=== PATIENT | male | born 1980 | race Hispanic/Latino ===

== ENCOUNTER 2022-02-06 04:54 | Emergency (ER) | payer SELFPAY ==
[2022-02-06 05:56] LABS: Absolute Lymphocytes (CBC) 1.8 K/uL (0.7-4.9); Lymphocytes % 9.9 % (15.3-44.8); MCV 87.8 fL (80-100); MPV 10.1 fL (7.6-11.3); RBC Red Blood Cell Count 4.56 M/uL (4.33-5.43)
[2022-02-06] MEDS ORDERED: KETOROLAC 30 MG/ML INJ ONE (06:11)
[2022-02-06 06:14] LABS: Albumin 3.7 g/dL (3.4-5.0); Bilirubin Total 0.7 mg/dL (0.2-1.0); Potassium 3.7 mmol/L (3.5-5.1); Protein, Total 7.8 g/dL (6.4-8.2)
--- NOTE | 2022-02-06 07:04 | RAD REPORT ---
EXAM DESCRIPTION: CTAbdomen Pelvis W Contrast - 02/06/2022 6:42 am CLINICAL HISTORY: Epigastric pain COMPARISON: 09/20/13 TECHNIQUE: CT of the abdomen and pelvis was performed. All CT scans are performed using dose optimization technique as appropriate and may include automated exposure control or mA/KV adjustment according to patient size. FINDINGS: Lower chest: No acute abnormality. Mild circumferential thickened distal esophagus likely reflecting esophagitis. Liver: No acute abnormality or suspicious lesions. Biliary: No biliary ductal dilatation. Stomach: The gastric antrum appears slightly thickened. Duodenum: No significant focal abnormality. Pancreas: No significant abnormality. Spleen: No significant abnormality. Adrenal: No suspicious lesions. Kidney/ureter: No hydronephrosis. No renal calculi. Retroperitoneum: No retroperitoneal adenopathy. Vascular: No aneurysm. Bowel: No significant focal abnormality. Peritoneum: No ascites or free air. Mild fat containing left inguinal hernia. Small fat containing um bilical hernia. Bladder: Grossly unremarkable. Reproductive: No adnexal masses. Bones: No acute fracture. Other: n/a IMPRESSION: No acute intra-abdominal or pelvic finding. Circumferential thickening of the distal eso phagus suggesting esophagitis. Question thickening of the gastric antrum as well. These findings coul d be better assessed with endoscopy.
--- NOTE | 2022-02-06 07:25 | ER ---
[facility]'s [facility] Name: Gustavo Eastman Age: 42 yrs Sex: Male : 1980 Arrival Date: 02/06/2022 Time: 04:58 Bed 20 Private MD: Diagnosis: Rectal pain Presentation: 02/06 05:21 Chief complaint: Patient states: anal pain starting Monday. the pain is more on the lg3 left side but it is getting worse each day. Coronavirus screen: Client denies travel out of the [place] in the last 14 days. At this time, the client does not indicate any symptoms associated with coronavirus-19. Ebola Screen: No symptoms or risks identified at this time. Initial Sepsis Screen: Does the patient have a suspected source of infection? No. Patient's initial sepsis screen is negative. Risk Assessment: Do you want to hurt yourself or someone else? Patient reports no desire to harm self or others. Onset of symptoms was February 04, 2022. 05:21 Method Of Arrival: Ambulatory lg3 05:21 Acuity: ANA 3 lg3 05:27 Initial Sepsis Screen: Does the patient meet any 2 criteria? No. Patient's initial lg3 sepsis screen is negative. Triage Assessment: 05:23 General: Appears in no apparent distress. uncomfortable, Behavior is calm, cooperative. lg3 Pain: Complains of pain in anus Pain currently is 8 out of 10 on a pain scale. Aggravated by increased activity, repositioning, weight bearing, Noted to be resistant to movement. EENT: No deficits noted. No signs and/or symptoms were reported regarding the EENT system. Neuro: No deficits noted. Level of Consciousness is awake, alert, obeys commands, Oriented to person, place, time, situation. Cardiovascular: No deficits noted. Denies chest pain, shortness of breath, Capillary refill < 3 seconds Clubbing of nail beds is absent JVD is absent Patient's skin is warm and dry. Respiratory: No deficits noted. Airway is patent Trachea midline Respiratory effort is even, unlabored, Respiratory pattern is regular, symmetrical, Breath sounds are clear bilaterally. GI: No deficits noted. Abdomen is round non-distended, Bowel sounds present X 4 quads. Abd is soft and non tender X 4 quads. : No deficits noted. No signs and/or symptoms were reported regarding the genitourinary system. Derm: No deficits noted. Skin is intact, is healthy with good turgor, Skin is dry, Skin temperature is warm Reports burning, itching, pain in anus. Musculoskeletal: No deficits noted. No signs and/or symptoms reported regarding the musculoskeletal system. Circulation, motion, and sensation intact. Range of motion: intact in all extremities. Historical: - Allergies: 05:23 No Known Allergies; lg3 - Home Meds: 05:23 None [Active]; lg3 - PMHx: 05:23 None; lg3 - PSHx: 05:23 left wrist; lg3 - Immunization history:: Adult Immunizations up to date, pfizer X2. - Social history:: Smoking status: Patient denies any tobacco usage or history of. Patient uses alcohol, occasionally. Patient/guardian denies using street drugs, IV drugs. Screenin:27 Abuse screen: Denies threats or abuse. Denies injuries from another. Nutritional lg3 screening: No deficits noted. Tuberculosis screening: No symptoms or risk factors identified. Fall Risk None identified. Assessment: 05:27 General: see triage assessment . lg3 06:08 Reassessment: Patient appears in no apparent distress at this time. Patient and/or ha1 family updated on plan of care and expected duration. Pain level reassessed. Patient is alert, oriented x 3, equal unlabored respirations, skin warm/dry/pink. 07:12 Reassessment: Patient and/or family updated on plan of care and expected duration. Pain mb8 level reassessed. Patient is alert, oriented x 3, equal unlabored respirations, skin warm/dry/pink. Vital Signs: 05:21 BP 129 / 82; Pulse 80; Resp 17 S; Temp 98.6; Pulse Ox 98% on R/A; Pain 9/10; ha1 05:21 Weight 80.74 kg (R); Height 5 ft. 2 in. (157.48 cm) (R); Pain 9/10; lg3 06:25 BP 117 / 70; Pulse 69; Resp 18 S; Pulse Ox 99% on R/A; ha1 05:21 Body Mass Index 32.56 (80.74 kg, 157.48 cm) lg3 ED Course: 04:58 Patient arrived in ED. ja2 05:21 Abbey Mccormick, RN is Primary Nurse. ha1 05:23 Triage completed. lg3 05:23 Maco Diop MD is Attending Physician. kdr 05:23 Arm band placed on left wrist. lg3 05:27 Patient has correct armband on for positive identification. Bed in low position. Call lg3 light in reach. Side rails up X 1. Client placed on continuous cardiac and pulse oximetry monitoring. NIBP monitoring applied. Door closed. Noise minimized. Warm blanket given. 05:46 Initial lab(s) drawn, by nj, sent to lab. Inserted saline lock: 20 gauge in right 5 antecubital area, using aseptic technique. Blood collected. 05:47 CBC with Diff Sent. 5 05:47 CMP Sent. 5 05:47 Lipase Sent. 5 06:44 CT Abd/Pelvis - IV Contrast Only In Process Unspecified. EDMS 07:13 Attending Physician role handed off by Maco Diop MD rn 07:13 Rich Klein MD is Attending Physician. rn 07:24 Howard Zamora MD is Referral Physician. rn 07:55 No provider procedures requiring assistance completed. mb8 08:19 IV discontinued, intact, bleeding controlled, No redness/swelling at site. Pressure mb8 dressing applied. Administered Medications: 06:07 Drug: Ketorolac 15 mg Route: IVP; Site: right antecubital; ha1 07:55 Follow up: Response: No adverse reaction; Marked relief of symptoms; Pain is decreased mb8 07:30 Drug: Clindamycin 600 mg Route: IVPB; Infused Over: 30 mins; Site: right antecubital; mb8 08:18 Follow up: Response: No adverse reaction; IV Status: Completed infusion mb8 Medication: 07:55 VIS not applicable for this client. mb8 Outcome: 07:25 Discharge ordered by . rn 08:17 Discharged to home ambulatory. mb8 08:17 Condition: stable 08:17 Discharge instructions given to patient, Instructed on discharge instructions, follow up and referral plans. Demonstrated understanding of instructions, follow-up care, medications, Prescriptions given X 2. 08:19 Patient left the ED. mb8 Signatures: Dispatcher [employer] EDMT Maco Diop MD MD [facility] Rich Klein MD MD rn Martinez, Maria [facility] Cathy Wei RN RN 3 Kaylee Leiva Heidy RN RN ha1 Curtis Delgado RN RN mb8 Corrections: (The following items were deleted from the chart) 05:29 05:21 Acuity: ANA 4 lg3 lg3
--- NOTE | 2022-02-06 07:25 | EDPHYS ---
Physician Documentation [facility] Name: Gustavo Eastman Age: 42 yrs Sex: Male : 1980 Arrival Date: 02/06/2022 Time: 04:58 Bed 20 Private MD: ED Physician Rich Klein HPI: 02/06 05:50 This 42 yrs old Male presents to ER via Ambulatory with complaints of Low Back kdr Pain. 05:50 The patient presents with pain that is acute, with no known mechanism of injury. CC: kdr Anal pain. HPI: Patient complains of pain in the anus since Monday. Patient states he has a history of hemorrhoids but does not feel that is a problem at this time. Denies rectal bleeding or any discharge. He states that the pain is worse on the left side and overall seems to be getting worse since Monday. ROS: Constitutional: No fever, chills or weight loss. Eyes: No visual changes or complaints. Neck: No pain or injury. CV: No chest pain or palpitations. Respiratory: No shortness of breath, cough or congestion. Abdominal: No nausea, vomiting, diarrhea or pain. He is complaining of pain to the rectal area. He denies bloody stools or rectal discharge. no pain or bleeding. No dark urine. Neurological: No gross neurological deficits noted globally or focally. Psychiatric: Appropriate for age. Exam: Well-developed well-nourished male in no acute distress. Head/face: No injury, pain or deformity. Eyes PERRLA. ENT: No pain, injury or bleeding. Neck: No pain, injury or deformity, full range of motion. Chest axilla: No pain, injury or deformity. CV: No rubs, gallops, murmurs, regular rate and rhythm. Respiratory clear to auscultation bilaterally, regular rate. Abdomen/GI: Soft, nontender, bowel sounds present in all quads and normal. Rectal exam was grossly normal. There is no obvious abscess present. Back: No injury or deformity, full range of motion. . Historical: - Allergies: 05:23 No Known Allergies; lg3 - Home Meds: 05:23 None [Active]; lg3 - PMHx: 05:23 None; lg3 - PSHx: 05:23 left wrist; lg3 - Immunization history:: Adult Immunizations up to date, pfizer X2. - Social history:: Smoking status: Patient denies any tobacco usage or history of. Patient uses alcohol, occasionally. Patient/guardian denies using street drugs, IV drugs. ROS: 06:51 Constitutional: Negative for fever, chills, and weight loss, Eyes: Negative for injury, kdr pain, redness, and discharge, ENT: Negative for injury, pain, and discharge, Neck: Negative for injury, pain, and swelling, Cardiovascular: Negative for chest pain, palpitations, and edema, Respiratory: Negative for shortness of breath, cough, wheezing, and pleuritic chest pain, Back: Negative for injury and pain, : Negative for injury, bleeding, discharge, and swelling, MS/Extremity: Negative for injury and deformity, Skin: Negative for injury, rash, and discoloration, Neuro: Negative for headache, weakness, numbness, tingling, and seizure activity. Psych: Negative for depression, anxiety, suicide ideation, homicidal ideation, and hallucinations, Allergy/Immunology: Negative for hives, rash, and allergies, Endocrine: Negative for neck swelling, polydipsia, polyuria, polyphagia, and marked weight changes, Hematologic/Lymphatic: Negative for swollen nodes, abnormal bleeding, and unusual bruising. 06:51 Abdomen/GI: Positive for rectal pain, Negative for abdominal pain, nausea and vomiting, nausea, vomiting, and diarrhea, nausea, diarrhea, constipation, abdominal cramps, abdominal distension, anorexia. Exam: 06:51 Constitutional: This is a well developed, well nourished patient who is awake, alert, kdr and in no acute distress. Head/Face: Normocephalic, atraumatic. Chest/axilla: Normal chest wall appearance and motion. Nontender with no deformity. No lesions are appreciated. Cardiovascular: Regular rate and rhythm with a normal S1 and S2. No gallops, murmurs, or rubs. Normal PMI, no JVD. No pulse deficits. Respiratory: Lungs have equal breath sounds bilaterally, clear to auscultation and percussion. No rales, rhonchi or wheezes noted. No increased work of breathing, no retractions or nasal flaring. Back: No spinal tenderness. No costovertebral tenderness. Full range of motion. Skin: Warm, dry with normal turgor. Normal color with no rashes, no lesions, and no evidence of cellulitis. MS/ Extremity: Pulses equal, no cyanosis. Neurovascular intact. Full, normal range of motion. Neuro: Awake and alert, GCS 15, oriented to person, place, time, and situation. Cranial nerves II-XII grossly intact. Motor strength 5/5 in all extremities. Sensory grossly intact. Cerebellar exam normal. Normal gait. Psych: Awake, alert, with orientation to person, place and time. Behavior, mood, and affect are within normal limits. 06:51 Abdomen/GI: Inspection: abdomen appears normal, Bowel sounds: normal, active, all quadrants, Palpation: soft, nontender, Rectal exam: hemorrhoid(s), are not appreciated, mass, is not appreciated, swelling, is not appreciated, tenderness, that is mild, the exam is chaperoned by the nurse. Vital Signs: 05:21 BP 129 / 82; Pulse 80; Resp 17 S; Temp 98.6; Pulse Ox 98% on R/A; Pain 9/10; ha1 05:21 Weight 80.74 kg (R); Height 5 ft. 2 in. (157.48 cm) (R); Pain 9/10; lg3 06:25 BP 117 / 70; Pulse 69; Resp 18 S; Pulse Ox 99% on R/A; ha1 05:21 Body Mass Index 32.56 (80.74 kg, 157.48 cm) lg3 MDM: 07:13 Patient medically screened. rn 07:20 Differential diagnosis: perirectal phlegmon, proctitis, colitis, diverticulitis. Data rn reviewed: vital signs, nurses notes, lab test result(s), radiologic studies, and as a result, I will discharge patient. Counseling: I had a detailed discussion with the patient and/or guardian regarding: the historical points, exam findings, and any diagnostic results supporting the discharge/admit diagnosis, lab results, radiology results, the need for outpatient follow up, to return to the emergency department if symptoms worsen or persist or if there are any questions or concerns that arise at home. Special discussion: I discussed with the patient/guardian in detail that at this point there is no indication for admission to the hospital. It is understood, however, that if the symptoms persist or worsen the patient needs to return immediately for re-evaluation. ED course: Signed out to me by Dr. Diop, states no evidence of perirectal abscess or thrombosed hemorrhoid, plan was to dc home if ct normal. CT without acute findings, no evidence of proctitis or perirectal abscess. + elevated WBC, could be early infection. Will give abx, and return precautions, patient states feels much better already and understands when to return if worsens.. 02/06 05:31 Order name: CBC with Diff; Complete Time: 07:12 kdr 02/06 05:31 Order name: CMP; Complete Time: 07:12 kdr 02/06 05:31 Order name: CT Abd/Pelvis - IV Contrast Only; Complete Time: 07:12 kdr 02/06 05:31 Order name: Lipase; Complete Time: 07:12 kdr 02/06 05:31 Order name: IV Saline Lock; Complete Time: 05:46 kdr 02/06 05:31 Order name: Labs collected and sent; Complete Time: 05:46 kdr Administered Medications: 06:07 Drug: Ketorolac 15 mg Route: IVP; Site: right antecubital; ha1 07:55 Follow up: Response: No adverse reaction; Marked relief of symptoms; Pain is decreased mb8 07:30 Drug: Clindamycin 600 mg Route: IVPB; Infused Over: 30 mins; Site: right antecubital; mb8 08:18 Follow up: Response: No adverse reaction; IV Status: Completed infusion mb8 Disposition Summary: 02/06/22 07:25 Discharge Ordered Location: Home rn Problem: new rn Symptoms: have improved rn Condition: Stable rn Diagnosis - Rectal pain rn Followup: rn - With: Howard Zamora MD - When: 2 - 3 days - Reason: Recheck today's complaints, Re-evaluation by your physician Discharge Instructions: - Discharge Summary Sheet rn - Pain Without a Known Cause rn Forms: - Medication Reconciliation Form rn - Thank You Letter rn - Antibiotic round corner cutter operator - Prescription Opioid Use rn - Work release form eb Prescriptions: - Clindamycin HCl 300 mg Oral Capsule - take 1 capsule by ORAL route every 6 hours for 10 days; 40 capsule; Refills: 0, rn Product Selection Permitted - Tramadol 50 mg Oral Tablet - take 1 tablet by ORAL route every 8 hours as needed; 12 tablet; Refills: 0, rn Product Selection Permitted Signatures: Dispatcher [employer] EDMaco Holder, MD MD kdr Klein, Rich, MD MD rn Eriberto, Cathy, RN RN lg3 Abbey Mccormick, RN RN ha1 Curtis Delgado RN RN mb8
[2022-02-06] MEDS ORDERED: CLINDAMYCIN 600MG/D5W 600 MG/50 ML BAG IV ONE (07:41)
[2022-02-06 08:41] VITALS: TEMP 98.6
[2022-02-06 08:57] VITALS: BP 117/70; O2SAT 99
== END 2022-02-06 08:19 | disposition home or self-care (01) ==
LOC: ER 04:54
DX: K62.89 Other specified diseases of anus and rectum (principal); M54.50 Low back pain, unspecified
CPT/HCPCS: 36415; 74177; 80053; 83690; 85025; 96365; 96375; 99284; Q9967

== ENCOUNTER 2022-08-07 15:37 | Emergency (ER) | payer SELFPAY ==
[2022-08-07 16:02] LABS: Urine Blood Negative (Negative); Urine Glucose Negative (Negative); Urine Protein Negative (Negative)
[2022-08-07 16:06] LABS: Absolute Lymphocytes (CBC) 2.1 K/uL (0.7-4.9); Hematocrit 42.6 % (39.6-49.0); Lymphocytes % 18.9 % (15.3-44.8); MCV 89.8 fL (80-100); MPV 10.2 fL (7.6-11.3); RBC Red Blood Cell Count 4.75 M/uL (4.33-5.43)
[2022-08-07] MEDS ORDERED: NA CHLORIDE 0.9% 1,000 ML ONE (16:08)
[2022-08-07] MEDS ORDERED: KETOROLAC 30 MG/ML INJ ONE (16:08)
[2022-08-07 16:31] LABS: Albumin 3.6 g/dL (3.4-5.0); Bilirubin Total 0.4 mg/dL (0.2-1.0)
[2022-08-07 16:40] LABS: Urine Bacteria None Seen /HPF (<20); Urine Mucus Slight /HPF (None Seen); Urine RBC <5 /HPF (None Seen)
[2022-08-07 16:42] LABS: Potassium 4.9 mmol/L (3.5-5.1)
--- NOTE | 2022-08-07 16:49 | RAD REPORT ---
EXAM DESCRIPTION: CT - Stone Protocol - 08/07/2022 4:39 pm CLINICAL HISTORY: Abdominal pain/ lower back pain for 3 days. COMPARISON: None. TECHNIQUE: Axial thin cut CT imaging of the abdomen and pelvis was performed without IV contrast. Mu ltiplanar reformats generated and reviewed. All CT scans are performed using dose optimization technique as appropriate and may include automated exposure control or mA/KV adjustment according to patient size. FINDINGS: No suspicious findings in the lung bases. The liver, spleen and pancreas show no suspicious findings. Gallbladder and biliary tree are also wit hout suspicious finding. No hydronephrosis or suspicious renal mass. No significant adrenal finding. Isodense masses and pyel onephritis cannot be excluded in the absence of IV contrast. No dilated bowel loops or bowel wall thickening. No free air, free fluid or inflammatory stranding. N o suspicious mass or adenopathy. The urinary bladder is suboptimally distended, limiting evaluation, without significant finding. Moderate left inguinal fat containing hernia. No suspicious bony findings. IMPRESSION: No hydroureteronephrosis or radiopaque calculi. No other acute abnormalities in abdomen and pelvis. Left inguinal fat containing hernia. Full assessment is limited is the absence of IV contrast.
--- NOTE | 2022-08-07 17:19 | ER ---
[facility] Gust[facility] Age: 42 yrs Sex: Male : 1980 Arrival Date: 08/07/2022 Time: 15:40 Bed 17 [facility] MD: Diagnosis: Low back pain Presentation: 08/07 15:42 Chief complaint: Lower back pain that radiates to lower abdomen x 3 days. Denies hb injury/N/V/urinary symptoms. Coronavirus screen: At this time, the client does not indicate any symptoms associated with coronavirus-19. Ebola Screen: No symptoms or risks identified at this time. Initial Sepsis Screen: Does the patient meet any 2 criteria? No. Patient's initial sepsis screen is negative. Does the patient have a suspected source of infection? No. Patient's initial sepsis screen is negative. Risk Assessment: Do you want to hurt yourself or someone else? Patient reports no desire to harm self or others. Onset of symptoms was August 05, 2022. 15:42 Method Of Arrival: Ambulatory hb 15:42 Acuity: ANA 3 hb Historical: - Allergies: 15:44 No Known Allergies; hb - PSHx: 15:44 Left wrist; hb - Immunization history:: Adult Immunizations up to date. - Social history:: Smoking status: Patient denies any tobacco usage or history of. Screenin:45 [facility] ED Fall Risk Assessment (Adult) History of falling in the last 3 months, ko1 including since admission No falls in past 3 months (0 pts) Confusion or Disorientation No (0 pts) Intoxicated or Sedated No (0 pts) Impaired Gait No (0 pts) Mobility Assist Device Used No (0 pt) Altered Elimination No (0 pt) Score/Fall Risk Level 0 - 2 = Low Risk Oriented to surroundings, Maintained a safe environment, Educated pt \T\ family on fall prevention, incl call for assistance when getting out of bed, Assessed \T\ reinforced patient's understanding of fall precautions, Provided non-skid footwear, Hourly rounding (assess needs \T\ fall precautionary measures) done, Used ambulatory aids as needed (educated on \T\ assisted with), Used gait belt as appropriate. Abuse screen: Denies threats or abuse. Denies injuries from another. Nutritional screening: No deficits noted. Tuberculosis screening: No symptoms or risk factors identified. Assessment: 15:45 General: Appears in no apparent distress. comfortable, Behavior is calm, cooperative, ko1 appropriate for age. Pain: Complains of pain in abdomen and left lower quadrant and right lower quadrant and low back area. Neuro: No deficits noted. Cardiovascular: No deficits noted. Respiratory: No deficits noted. GI: Bowel sounds present X 4 quads. Abd is soft and non tender X 4 quads. : No deficits noted. EENT: No deficits noted. Derm: No deficits noted. Musculoskeletal: No deficits noted. Vital Signs: 15:42 BP 120 / 77; Pulse 75; Resp 16; Temp 97.6(TE); Pulse Ox 100% on R/A; Weight 79.38 kg; hb Height 5 ft. 4 in. (162.56 cm); Pain 6/10; 15:45 BP 118 / 76; Pulse 72; Resp 16; Pulse Ox 99% ; ko1 16:30 BP 124 / 75; Pulse 74; Resp 18; Pulse Ox 98% ; ko1 17:00 BP 121 / 72; Pulse 70; Resp 16; Pulse Ox 99% ; ko1 15:42 Body Mass Index 30.04 (79.38 kg, 162.56 cm) hb ED Course: 15:40 Patient arrived in ED. rg4 15:41 Elsa Moran FNP-C [facility] kb 15:41 Rich Klein MD is Attending Physician. kb 15:44 Triage completed. hb 15:45 Arm band placed on left wrist. hb 15:45 Patient has correct armband on for positive identification. Bed in low position. Call ko1 light in reach. Side rails up X 1. Pulse ox on. NIBP on. 15:45 No provider procedures requiring assistance completed. ko1 15:46 Sheridan Ortiz, SEPIDEH is Primary Nurse. ko1 15:50 Inserted saline lock: 20 gauge in right antecubital area, using aseptic technique. ko1 Blood collected. 15:56 CBC with Diff Sent. ko1 15:56 CMP Sent. ko1 15:56 Lipase Sent. ko1 15:56 Urine Microscopic Only Sent. ko1 16:44 CT Stone Protocol In Process Unspecified. EDMS 17:36 IV discontinued, intact, bleeding controlled, No redness/swelling at site. Pressure ko1 dressing applied. Administered Medications: 16:07 Drug: NS 0.9% 1000 ml Route: IV; Rate: 1 bolus; Site: right antecubital; ko1 17:35 Follow up: Response: No adverse reaction; IV Status: Completed infusion; IV Intake: ko1 1000ml 16:07 Drug: TORadol - (ketorolac) 15 mg Route: IVP; Site: right antecubital; ko1 17:35 Follow up: Response: No adverse reaction; Pain is decreased ko1 Medication: 17:36 VIS not applicable for this client. ko1 Intake: 17:35 IV: 1000ml; Total: 1000ml. ko1 Outcome: 17:18 Discharge ordered by . dyan 17:36 Discharged to home ambulatory. ko1 17:36 Condition: improved 17:36 Discharge instructions given to patient, Instructed on discharge instructions, follow up and referral plans. medication usage, Demonstrated understanding of instructions, follow-up care, medications, Prescriptions given X 1. 17:40 Patient left the ED. ko1 Signatures: Dispatcher [employer] EDMS Elsa Moran, RN SURGICAL-C RN SURGICAL-CkTami Mueller, RN RN Vannesa Rodriguez rg4 Sheridan Ortiz, SEPIDEH RN ko1 Corrections: (The following items were deleted from the chart) 15:45 15:42 Pulse 75bpm; Resp 16bpm; Pulse Ox 100% RA; Temp 97.6F Temporal; 79.38 kg; Height hb 5 ft. 4 in.; BMI: 30.0; Pain 6/10; hb
--- NOTE | 2022-08-07 17:19 | EDPHYS ---
Physician Documentation [facility] Name: Gustavo Eastman Age: 42 yrs Sex: Male : 1980 Arrival Date: 08/07/2022 Time: 15:40 Bed 17 Private MD: ED Physician Rich Klein HPI: 08/07 16:19 This 42 yrs old Male presents to ER via Ambulatory with complaints of kb Abdominal Pain, Back Pain. 16:19 The patient presents with pain that is acute. The symptoms are located in the low back. kb The pain radiates to the right lower quadrant and left lower quadrant. The problem was sustained from unknown cause. Onset: The symptoms/episode began/occurred 3 day(s) ago. Modifying factors: The patient symptoms are alleviated by nothing, the patient symptoms are aggravated by nothing. Associated signs and symptoms: Pertinent positives: abdominal pain, Pertinent negatives: constipation, fever, nausea, vomiting. Severity of symptoms: At their worst the symptoms were moderate, in the emergency department the symptoms are unchanged. The patient has not experienced similar symptoms in the past. The patient has not recently seen a physician. Historical: - Allergies: 15:44 No Known Allergies; hb - PSHx: 15:44 Left wrist; hb - Immunization history:: Adult Immunizations up to date. - Social history:: Smoking status: Patient denies any tobacco usage or history of. ROS: 16:19 Constitutional: Negative for fever, chills, and weight loss. kb 16:19 Abdomen/GI: Positive for abdominal pain, Negative for nausea, vomiting, and diarrhea. 16:19 Back: Positive for pain at rest, pain with movement, of the low back area. 16:19 All other systems are negative. Exam: 16:19 Constitutional: This is a well developed, well nourished patient who is awake, alert, kb and in no acute distress. Head/Face: Normocephalic, atraumatic. ENT: Moist Mucous membranes Cardiovascular: Regular rate and rhythm with a normal S1 and S2. No gallops, murmurs, or rubs. No pulse deficits. Respiratory: Respirations even and unlabored. No increased work of breathing. Talking in full sentences Abdomen/GI: Soft, non-tender. No distention Skin: Warm, dry with normal turgor. Normal color. MS/ Extremity: Pulses equal, no cyanosis. Neurovascular intact. Full, normal range of motion. Neuro: Awake and alert, GCS 15, oriented to person, place, time, and situation. Moves all extremities. Normal gait. 16:19 Back: CVA tenderness, that is mild, is noted bilaterally. Vital Signs: 15:42 BP 120 / 77; Pulse 75; Resp 16; Temp 97.6(TE); Pulse Ox 100% on R/A; Weight 79.38 kg; hb Height 5 ft. 4 in. (162.56 cm); Pain 6/10; 15:45 BP 118 / 76; Pulse 72; Resp 16; Pulse Ox 99% ; ko1 16:30 BP 124 / 75; Pulse 74; Resp 18; Pulse Ox 98% ; ko1 17:00 BP 121 / 72; Pulse 70; Resp 16; Pulse Ox 99% ; ko1 15:42 Body Mass Index 30.04 (79.38 kg, 162.56 cm) hb MDM: 15:41 Patient medically screened. kb 15:57 Data reviewed: vital signs, nurses notes. kb 16:18 Differential diagnosis: appendicitis, diverticulitis, Ureterolithiasis, urinary tract kb infection. ED course: Patient is a 42-year-old male who presents for bilateral flank/low back pain that radiates to abdomen that started 3 days ago and has progressively gotten worse. Denies nausea, vomiting, diarrhea, fever, urinary symptoms. On exam patient has bilateral CVA tenderness that is mild, no abdominal tenderness. Will obtain CT stone, serum labs and urinalysis.. 17:17 Counseling: I had a detailed discussion with the patient and/or guardian regarding: the kb historical points, exam findings, and any diagnostic results supporting the discharge/admit diagnosis, lab results, radiology results, the need for outpatient follow up, a family practitioner, to return to the emergency department if symptoms worsen or persist or if there are any questions or concerns that arise at home. 17:18 ED course: Patient nontoxic in appearance, tolerating p.o. intake, feeling better after kb treatment. Discussed all diagnostic results with patient and educated on need for follow-up with PCP for continued symptoms. Patient in agreement with outpatient follow-up.. 08/07 15:44 Order name: CBC with Diff; Complete Time: 16:18 kb 08/07 15:44 Order name: CMP; Complete Time: 16:46 kb 08/07 15:44 Order name: Lipase; Complete Time: 16:46 kb 08/07 15:44 Order name: Urine Microscopic Only; Complete Time: 16:46 kb 08/07 16:02 Order name: Urine Dipstick-Ancillary; Complete Time: 16:09 EDNH 08/07 16:18 Order name: CT Stone Protocol; Complete Time: 16:50 kb 08/07 15:44 Order name: IV Saline Lock; Complete Time: 15:56 kb 08/07 15:44 Order name: Labs collected and sent; Complete Time: 15:56 kb 08/07 15:44 Order name: Urine Dipstick-Ancillary (obtain specimen); Complete Time: 15:56 kb Administered Medications: 16:07 Drug: NS 0.9% 1000 ml Route: IV; Rate: 1 bolus; Site: right antecubital; ko1 17:35 Follow up: Response: No adverse reaction; IV Status: Completed infusion; IV Intake: ko1 1000ml 16:07 Drug: TORadol - (ketorolac) 15 mg Route: IVP; Site: right antecubital; ko1 17:35 Follow up: Response: No adverse reaction; Pain is decreased ko1 Disposition Summary: 08/07/22 17:18 Discharge Ordered Location: Home kb Condition: Stable kb Diagnosis - Low back pain kb Followup: kb - With: Emergency Department - When: As needed - Reason: Worsening of condition Followup: kb - With: Private Physician - When: 2 - 3 days - Reason: Recheck today's complaints, Continuance of care, Re-evaluation by your physician Discharge Instructions: - Discharge Summary Sheet kb - Musculoskeletal Pain kb Forms: - Medication Reconciliation Form kb - Thank You Letter kb - Antibiotic Education kb - Prescription Opioid Use kb Prescriptions: - Diclofenac Sodium 75 mg Oral tablet,delayed release (DR/EC) - take 1 tablet by ORAL route 2 times per day As needed; 30 tablet; Refills: 0, kb Product Selection Permitted Addendum: 08/09/2022 07:15 Co-signature as Attending Physician, Rich Klein MD I reviewed the patient's care r n provided by the Advanced Practice Provider and agree with the diagnosis and treatment plan. Signatures: Dispatcher [employer] Elsa Retana, ACCOUNTS PAYABLE PROFESSIONAL-C ACCOUNTS PAYABLE PROFESSIONAL-CkRich Gonsales MD MD rn Tami Méndez, RN RN hb Sheridan Ortiz, RN RN ko1
[2022-08-07 17:56] VITALS: TEMP 97.6
[2022-08-07 18:13] VITALS: BP 121/72; O2SAT 99
== END 2022-08-07 17:40 | disposition home or self-care (01) ==
LOC: ER 15:37
DX: M54.50 Low back pain, unspecified (principal)
CPT/HCPCS: 36415; 74176; 76377; 80053; 81003; 81015; 83690; 85025; 96361; 96374; 99284; J7030